=== PATIENT | male | born 1985 | race Caucasian/White ===

== ENCOUNTER 2024-07-20 08:27 | Emergency (ER) | payer OTHER ==
[2024-07-20] MEDS ORDERED: HYDROmorphone 0.5 MG/0.5 ML Syringe IM ONE (09:29)
[2024-07-20] MEDS: HYDROmorphone 1 MG/ML Syringe IM ONE (09:43)
[2024-07-20] MEDS: Ondansetron 4 MG Tab.DIS PO ONE (09:43)
== END 2024-07-20 11:00 | disposition home or self-care (01) ==
LOC: JD.ED 08:27
DX: S52.201A Unspecified fracture of shaft of right ulna, initial encounter for closed fracture (principal); W50.0XXA Accidental hit or strike by another person, initial encounter; Z88.0 Allergy status to penicillin
CPT/HCPCS: 29105; 73090; 96372; 99283; A9270

== ENCOUNTER 2025-04-07 23:58 | Emergency (ER) | payer OTHER ==
[2025-04-08] MEDS ORDERED: Sodium Chloride 0.9% 10 ML Syringe FLUSH PRN (00:19)
[2025-04-08 00:43] LABS: BASOPHILS PERCENT AUTO 0.3 % (0.0-1.0); EOSINOPHILS ABSOLUTE AUTO 0.1 K/mm3 (0.0-0.4); EOSINOPHILS PERCENT AUTO 1.7 % (0.0-6.0); HEMATOCRIT 46.6 % (42.0-52.0); HEMOGLOBIN 16.2 gm/dl (14.0-18.0); IMMATURE GRAN ABSOLUTE AUTO 0.03 K/mm3 (0.00-0.05); IMMATURE GRAN PERCENT AUTO 0.4 % (0.0-0.4); LYMPHOCYTES ABSOLUTE AUTO 3.1 K/mm3 (1.0-4.8); MEAN CORPUSCULAR HEMOGLOBIN 29.8 pg (28.0-32.0); MEAN CORPUSCULAR HGB CONC 34.8 g/dl (32.0-36.0); MEAN CORPUSCULAR VOLUME 85.8 fl (83.0-99.0); MEAN PLATELET VOLUME 9.6 fl (9.4-12.4); MONOCYTES ABSOLUTE AUTO 0.5 K/mm3 (0.0-0.8); MONOCYTES PERCENT AUTO 7.1 % (0.0-8.0); NEUTROPHILS ABSOLUTE AUTO 3.8 K/mm3 (1.8-7.7); NEUTROPHILS PERCENT AUTO 49.5 % (41.0-71.0); PLATELET COUNT,PLT 202 K/mm3 (150-400); RED BLOOD CELL COUNT 5.43 M/mm3 (4.52-5.90); WHITE BLOOD CELL COUNT,WBC 7.57 K/mm3 (3.9-11.3)
[2025-04-08 00:57] LABS: A/G RATIO 1.2 (1-2); ALBUMIN 3.9 g/dl (3.4-5.0); ANION GAP 10.7 (5-15); BILIRUBIN TOTAL 0.5 mg/dL (0.2-1.0); BUN/CREATININE RATIO 17.5 (14-18); CALCIUM 9.3 mg/dL (8.5-10.1); CREATININE 1.2 mg/dL (0.7-1.3); EST CRCL DRUG DOSING (CG) 83.65 mL/min; PROTEIN TOTAL,TP 7.3 g/dl (6.4-8.2)
[2025-04-08 01:02] LABS: POTASSIUM,K 3.7 mEq/L (3.5-5.1)
[2025-04-08] MEDS: Sodium Chloride 0.9% 45 ML IV SCH (01:43)
[2025-04-08] MEDS: Iopamidol 755 Mg/ML 100 ML Bottle IVPUSH ONE (01:43)
[2025-04-08] MEDS: Sodium Chloride 0.9% 10 ML Syringe FLUSH PRN (01:43)
[2025-04-08] MEDS: Sodium Chloride 0.9% 1,000 ML IV ONE (02:02)
== END 2025-04-08 04:00 | disposition home or self-care (01) ==
LOC: JD.ED 23:58
DX: E16.2 Hypoglycemia, unspecified (principal); R91.1 Solitary pulmonary nodule; Z88.0 Allergy status to penicillin
CPT/HCPCS: 36415; 71045; 71275; 80053; 83690; 84484; 85025; 93005; 96360; 99285; J7030; Q9967; 93010; 99284